=== PATIENT | female | born 1945 | race Caucasian/White ===

== ENCOUNTER 2016-07-09 09:24 | Emergency (ER) | payer SELFPAY ==
[~2016-07-09] VITALS: Ht 157.5 cm; Wt 72.6 kg
[2016-07-09 09:31] VITALS: BP 153/91
--- NOTE | 2016-07-09 09:42 | Emergency Room Report ---
History of Present Illness General Chief Complaint: Pain Source: Patient, EMS Present Illness HPI 74 YOF BIBEMS for 3/10 bilateral leg pain from AA meeting this morning. EMS states a bystander called 911. In triage, patient is combative, using foul and abusive language to myself and summer babysitter, refusing to provide additional HPI or allow physical exam because she is upset EMS brought her here and not [facility]. Patient is alert and oriented x3. Patient History Past Medical History: unable to obtain Past Surgical History: unable to obtain Pertinent Family History: unable to obtain Social History: Denies: alcohol use, drug use, smoking Now: No Immunizations: UTD Reviewed Nursing Documentation: PMH: Agreed, PSxH: Agreed Nursing Documentation-PMH Hx Hypertension: Yes Hx Diabetes: Yes Review of Systems All Other Systems: limited - Patient refusing to provide Physical Exam Vital Signs Date Time Temp Pulse Resp B/P Pulse Ox O2 Delivery O2 Flow Rate FiO2 07/09/16 09:24 96.1 0 0 153/90 0 Room Air Sp02 EP Interpretation: reviewed, abnormal General Appearance: normal inspection, well appearing, no apparent distress, alert, GCS 15, non-toxic, other - Wheelchair present Head: normocephalic, atraumatic Eyes: bilateral eye EOMI, bilateral eye PERRL Neck: normal inspection, full range of motion, supple Respiratory: normal inspection, no respiratory distress, no retraction, no wheezing Cardiovascular #1: normal inspection, normal peripheral pulses, regular rate, rhythm Gastrointestinal: normal inspection, no hernia Musculoskeletal: normal inspection Neurologic: normal inspection, alert, oriented x3, responsive, gambling broker III-XII nml as tested, motor strength/tone normal Psychiatric: normal inspection, judgement/insight normal, memory normal Skin: normal inspection Other Organ Systems exam otherwise limited by patient's refusal to cooperate Medical Decision Making Diagnostic Impression: Primary Impression: Bilateral leg pain ER Course 74 YO F BIBEMS for bilateral leg pain. VS notable for mild tachycardia and hypertension. Afebrile. Patient refusing additional HPI, PE, evaluation at this time despite repeated attempts by summer babysitter and myself to assist patient. Patient adamant about wanting to go to [facility] unstead EMS gave patient her wheelchair. She states she will take the bus there. Patient is clinically sober, is free from from distracting injury, and has intact judgement and capacity to decide to leave against medical advice. Patient came in with bilateral leg pain, is mildly tachycardic. I'm concerned for possible emergency causes of leg pain including DVT/PE, cellulitis, trauma. Patient verbalized understanding of my concern and possible need to do labwork, imaging, and treatment and possible admission. I explained to patient the risks of leaving AMA and patient informed that if they he leaves, they could get worse, he could become become critically ill, possibly become disabled or . Patient verbalized back to me understanding of these risks but still wants to leave. Patient refuses to sign AMA form and left the ED. Last Vital Signs Date Time Temp Pulse Resp B/P Pulse Ox O2 Delivery O2 Flow Rate FiO2 07/09/16 09:31 101 16 153/91 100 07/09/16 09:24 96.1 Room Air Status: improved Disposition: AGAINST MEDICAL ADVICE LAURA REID M.D. Jul 09, 2016 09:42
[2016-07-09] MEDS ORDERED: Atropine Sulfate 0.4mg/ml inj ONE (11:08)
[2016-07-09] MEDS ORDERED: Atropine Inj 1mg/10ml Syr ONE (11:09)
== END 2016-07-09 09:35 | disposition left against medical advice (07) ==
LOC: EMR 09:35 → EDBD 09:36
DX: M79.605 Pain in left leg (principal); M79.604 Pain in right leg; E11.9 Type 2 diabetes mellitus without complications; I10 Essential (primary) hypertension
CPT/HCPCS: 99283; J0461